=== PATIENT | female | born 1970 | race Caucasian/White ===

== ENCOUNTER 2018-03-24 15:44 | Inpatient (IN) | payer OTHER | END 2018-03-28 20:00 | LOC: WEST WING 03-25 00:58 → ER 15:44 | PROC: 0DJ08ZZ Inspection of Upper Intestinal Tract, Via Natural or Artificial Opening Endoscopic (ICD-10-PCS; principal; 2018-03-26 11:51) | PROC: 0DBP8ZX Excision of Rectum, Via Natural or Artificial Opening Endoscopic, Diagnostic (ICD-10-PCS; 2018-03-26 11:51) | DX: K29.51 Unspecified chronic gastritis with bleeding (principal); E44.0 Moderate protein-calorie malnutrition; G35 Multiple sclerosis; M41.9 Scoliosis, unspecified; F41.0 Panic disorder [episodic paroxysmal anxiety]; G89.4 Chronic pain syndrome; G56.01 Carpal tunnel syndrome, right upper limb; N80.9 Endometriosis, unspecified; F32.9 Major depressive disorder, single episode, unspecified ==

== ENCOUNTER 2022-07-26 16:07 | Inpatient (IN) | payer OTHER, MEDICAID ==
[~2022-07-26] VITALS: Ht 162.6 cm; Wt 100.7 kg
[~2022-07-26 16:07] MED LIST: AMAN100T PO; BACL10TA PO; BUPR150T18 PO; CLON1TAB PO; FENT25DI2 TD; FENT75DI2 TD; FER325T PO; GLAT1INJ SC; HYDR-531 PO; LIOT5TAB20 PO; NAPR-476 PO; OXYB15TA12 PO; PREG100C PO; TRAZ-227 PO
[2022-07-26] MEDS ORDERED: SODIUM CHLORIDE 0.9% 1,000 ML IV ONE (17:45)
[2022-07-26] MEDS ORDERED: HYDROmorphone HCL 2 MG/ML VL/or syr IM ONE (17:45)
[2022-07-26 18:38] LABS: Basophils # (auto) 0 10 ^3/uL (0-0.2); Basophils % (auto) 0.1 % (0.0-2.0); Eosinophils # (auto) 0.1 10 ^3/uL (0-0.8); Eosinophils % (auto) 0.9 % (0.0-7.0); Hematocrit 47.6 % (36.0-46.0); Mean Corpuscular Hemoglobin 26.9 pg (28.0-32.0); Neutrophils # (auto) 7.9 10 ^3/uL (1.6-8.6); White Blood Cell 10.1 10^3/uL (4.4-10.8)
[2022-07-26 18:40] LABS: Hemoglobin 15.6 g/dL (12.2-16.2); Lymphocytes # (auto) 1.6 10 ^3/uL (0.4-5.4); Lymphocytes % (auto) 15.8 % (10.0-50.0); Mean Corpuscular Hgb Conc. 32.8 g/dL (32.0-36.0); Monocytes # (auto) 0.5 10 ^3/uL (0-1.3); Monocytes % (auto) 5.3 % (0.0-12.0); Neutrophils % (auto) 77.9 % (37.0-80.0); Nucleated Red Blood Cells % 0.2 %; Red Blood Cells 5.81 10^6/uL (4.0-5.20)
[2022-07-26 19:20] LABS: Albumin 3.7 g/dL (3.4-5.0); Calcium 9.7 mg/dL (8.5-10.1); Potassium 3.7 mmol/L (3.5-5.1)
[2022-07-26 19:26] LABS: BUN/Creatinine Ratio 12.1 (10.0-20.0); Bilirubin, Total 0.5 mg/dL (0.2-1.0); Magnesium 2.1 mg/dL (1.6-2.6)
[2022-07-26] MEDS ORDERED: DexAMETHasone INJECTION 10 MG in D5W 5% 50 ML IV ONE (21:15)
[2022-07-26] MEDS ORDERED: ACETAMINOPHEN 325 MG TAB PO PRN (22:30)
[2022-07-26] MEDS ORDERED: DOCUSATE SOD 100 MG CAP PO PRN (22:30)
[2022-07-26] MEDS ORDERED: HYDROcodone-ACET 5/325MG TAB PO PRN (22:30)
[2022-07-26] MEDS ORDERED: NITROGLYCERIN 0.4 MG SL TAB SL PRN (22:30)
[2022-07-27] VITALS: BP 147/78
[2022-07-27 05:00] VITALS: BP 142/63
[2022-07-27] MEDS: SODIUM CHLOR 0.9% PF (SALINE LOCK) 10ML VIAL/SYR IV SCH ×3 (06:00→22:06)
[2022-07-27] MEDS: BACLOFEN 10 MG TAB PO SCH ×3 (06:35→22:06)
[2022-07-27 06:40] LABS: Potassium 3.7 mmol/L (3.5-5.1)
[2022-07-27 06:47] LABS: Basophils # (auto) 0 10 ^3/uL (0-0.2); Basophils % (auto) 0.1 % (0.0-2.0); Eosinophils # (auto) 0 10 ^3/uL (0-0.8); Hematocrit 46.2 % (36.0-46.0); Hemoglobin 15.3 g/dL (12.2-16.2); Lymphocytes # (auto) 1.5 10 ^3/uL (0.4-5.4); Lymphocytes % (auto) 14.4 % (10.0-50.0); Mean Corpuscular Hemoglobin 27.4 pg (28.0-32.0); Mean Corpuscular Hgb Conc. 33.2 g/dL (32.0-36.0); Mean Corpuscular Volume 82.7 fL (80.0-100.0); Monocytes # (auto) 0.1 10 ^3/uL (0-1.3); Monocytes % (auto) 0.8 % (0.0-12.0); Neutrophils # (auto) 8.8 10 ^3/uL (1.6-8.6); Neutrophils % (auto) 84.7 % (37.0-80.0); Nucleated Red Blood Cells % 0.1 %; Red Blood Cells 5.59 10^6/uL (4.0-5.20); Red Cell Distribution Width 15.5 % (11.8-14.3); White Blood Cell 10.4 10^3/uL (4.4-10.8)
[2022-07-27] MEDS ORDERED: ROPI1TAB4 PO (06:47)
[2022-07-27] MEDS ORDERED: DOCU-94 PO (06:47)
[2022-07-27 06:48] LABS: Albumin 3.6 g/dL (3.4-5.0); BUN/Creatinine Ratio 10.8 (10.0-20.0); Bilirubin, Total 0.7 mg/dL (0.2-1.0); Calcium 9.5 mg/dL (8.5-10.1); Total Protein 6.6 g/dL (6.4-8.2)
[2022-07-27 08:00] VITALS: BP 158/71
[2022-07-27] MEDS ORDERED: DexAMETHasone SOD PHOS 10MG/1ML VIAL INJ IV SCH (10:00)
[2022-07-27 12:30] VITALS: BP 142/85
[2022-07-27] MEDS: PRAMIPEXOLE DIHYDROCHLORIDE MO 0.25 MG TAB PO SCH ×2 (13:27→22:05)
[2022-07-27] MEDS: clonazePAM 0.5 MG TAB PO PRN (15:00)
[2022-07-27 16:30] VITALS: BP 147/79
[2022-07-27 22:00] VITALS: BP 170/63
[2022-07-27] MEDS: hydrALAZINE HCL 20 MG/ML VL IV PRN (22:13)
[2022-07-27] MEDS ORDERED: LORazepam 2MG/ML-1ML VIAL IV PRN (23:30)
[2022-07-28] MEDS: hydrALAZINE HCL 20 MG/ML VL IV PRN ×3 (04:47→23:39)
[2022-07-28] MEDS: SODIUM CHLOR 0.9% PF (SALINE LOCK) 10ML VIAL/SYR IV SCH ×3 (04:47→22:00)
[2022-07-28 05:00] VITALS: BP 174/94
[2022-07-28] MEDS: BACLOFEN 10 MG TAB PO SCH ×3 (06:00→22:00)
[2022-07-28 09:00] VITALS: BP 184/76
[2022-07-28] MEDS: FAMOTIDINE 20 MG TAB PO SCH ×2 (10:00→22:32)
[2022-07-28] MEDS: CHOLECALCIFEROL (VITD3) 2,000 UNIT CAP/TAB PO SCH (10:00)
[2022-07-28] MEDS: methylPREDNISolone SOD SUCC 1,000 MG in SODIUM CHL 0.9% 250 ML IV SCH (10:52)
[2022-07-28] MEDS: HYDROcodone-ACET 10/325MG TAB PO PRN ×2 (11:09→11:58)
[2022-07-28] MEDS: ONDANSETRON HCL 4 MG/2 ML VIAL IV PRN ×3 (11:10→23:39)
[2022-07-28] MEDS ORDERED: GADOTERATE MEG 10 MMOL/20ml INJ (0.5MMOL/ml) IV ONE (11:58)
[2022-07-28 13:00] VITALS: BP 144/96
[2022-07-28] MEDS: MORPHINE SULFATE INJ 2 MG/ml SYRG IV PRN (13:40)
[2022-07-28 17:00] VITALS: BP 164/77
[2022-07-28] MEDS: clonazePAM 0.5 MG TAB PO PRN (17:01)
[2022-07-28 22:00] VITALS: BP 164/66
[2022-07-28] MEDS ORDERED: PRAMIPEXOLE DIHYDROCHLORIDE MO 0.25 MG TAB ONE (22:22)
[2022-07-28] MEDS: PRAMIPEXOLE DIHYDROCHLORIDE MO 0.25 MG TAB PO SCH (22:32)
[2022-07-29] MEDS: MORPHINE SULFATE INJ 2 MG/ml SYRG IV PRN ×3 (00:12→19:44)
[2022-07-29] MEDS: OXYCODONE W/ ACETAMINOPHEN 5/325MG TABLET PO PRN ×2 (03:41→14:48)
[2022-07-29] MEDS: BACLOFEN 10 MG TAB PO SCH ×3 (05:08→19:19)
[2022-07-29] MEDS: SODIUM CHLOR 0.9% PF (SALINE LOCK) 10ML VIAL/SYR IV SCH ×3 (06:14→21:29)
[2022-07-29] MEDS: FAMOTIDINE 20 MG TAB PO SCH (10:00)
[2022-07-29] MEDS: CHOLECALCIFEROL (VITD3) 2,000 UNIT CAP/TAB PO SCH (10:00)
[2022-07-29] MEDS: methylPREDNISolone SOD SUCC 1,000 MG in SODIUM CHL 0.9% 250 ML IV SCH (13:00)
[2022-07-29] MEDS: hydrALAZINE HCL 20 MG/ML VL IV PRN (13:01)
[2022-07-29] MEDS: PANTOPRAZOLE 40 MG/10 ML VIAL INJ IV SCH (18:52)
[2022-07-29] MEDS: ONDANSETRON HCL 4 MG/2 ML VIAL IV PRN (19:44)
[2022-07-29] MEDS: clonazePAM 0.5 MG TAB PO PRN (21:28)
[2022-07-30] MEDS: BACLOFEN 10 MG TAB PO SCH ×2 (02:09→13:34)
[2022-07-30] MEDS: OXYCODONE W/ ACETAMINOPHEN 5/325MG TABLET PO PRN ×3 (02:13→18:33)
[2022-07-30] MEDS: SODIUM CHLOR 0.9% PF (SALINE LOCK) 10ML VIAL/SYR IV SCH ×2 (05:50→11:19)
[2022-07-30 06:13] VITALS: BP 169/88
[2022-07-30] MEDS: clonazePAM 0.5 MG TAB PO PRN (06:39)
[2022-07-30] MEDS: hydrALAZINE HCL 20 MG/ML VL IV PRN (06:40)
[2022-07-30] MEDS: PANTOPRAZOLE 40 MG/10 ML VIAL INJ IV SCH (08:53)
[2022-07-30] MEDS: MORPHINE SULFATE INJ 2 MG/ml SYRG IV PRN ×2 (08:53→15:55)
[2022-07-30] MEDS: methylPREDNISolone SOD SUCC 1,000 MG in SODIUM CHL 0.9% 250 ML IV SCH (08:54)
[2022-07-30 09:00] VITALS: BP 137/62
[2022-07-30] MEDS: CHOLECALCIFEROL (VITD3) 2,000 UNIT CAP/TAB PO SCH (11:16)
[2022-07-30] MEDS ORDERED: ALBUTEROL SULF 2.5 MG/0.5ML(0.5%) NEB SOLN NEB ONE ×2 (11:45→12:30)
[2022-07-30] MEDS ORDERED: ALBUTEROL SULF 2.5 MG/0.5ML(0.5%) NEB SOLN ONE (12:28)
[2022-07-30 13:00] VITALS: BP 154/89
[2022-07-30] MEDS ORDERED: METH4PAK PO (16:57)
[2022-07-30 17:00] VITALS: BP 150/69
[2022-07-30 19:02] VITALS: BP 169/88
== END 2022-07-30 19:49 | disposition home health service (06) | DRG 59 ==
LOC: EDBD 16:07 → ER 16:07 → OVERFLOW 22:31 → CENTRAL 23:44
PROVIDERS: ADMIT Nurse Practitioner Family; ATTEND Internal Medicine
DX: G35 Multiple sclerosis (principal); R47.01 Aphasia; I10 Essential (primary) hypertension; E66.01 Morbid (severe) obesity due to excess calories; R56.9 Unspecified convulsions; F17.200 Nicotine dependence, unspecified, uncomplicated; G89.4 Chronic pain syndrome; F41.0 Panic disorder [episodic paroxysmal anxiety]; M41.9 Scoliosis, unspecified; W18.39XA Other fall on same level, initial encounter; Y93.89 Activity, other specified; Z88.0 Allergy status to penicillin; Z68.38 Body mass index [BMI] 38.0-38.9, adult; Z80.8 Family history of malignant neoplasm of other organs or systems; Z82.0 Family history of epilepsy and other diseases of the nervous system; Z82.5 Family history of asthma and other chronic lower respiratory diseases; Z83.3 Family history of diabetes mellitus; Y99.8 Other external cause status; Y92.098 Other place in other non-institutional residence as the place of occurrence of the external cause
CPT/HCPCS: 36415; 70450; 70553; 71250; 72125; 73090; 73562; 74176; 80053; 82962; 83605; 83735; 83880; 84484; 85025; 96361; 96365; 96372; 97116; 97163; 97530; C9113; G0378; J1100; J2405; J7060

== ENCOUNTER 2023-04-21 10:54 | Emergency (ER) | payer OTHER, MEDICAID ==
[~2023-04-21] VITALS: Ht 157.5 cm; Wt 113.0 kg
[~2023-04-21 10:54] MED LIST changes: -AMAN100T PO; -BACL10TA PO; -BUPR150T18 PO; +DOCU-94 PO; -FENT25DI2 TD; -FENT75DI2 TD; -FER325T PO; -GLAT1INJ SC; -LIOT5TAB20 PO; +METH4PAK PO; -NAPR-476 PO; -OXYB15TA12 PO; +ROPI1TAB4 PO
[2023-04-21] MEDS: SODIUM CHLORIDE 0.9% 1,000 ML IVB ONE (11:33)
[2023-04-21] MEDS: NITROGLYCERIN 0.4 MG SL TAB SL ONE (11:33)
[2023-04-21] MEDS: ASPirin 81 mg TAB PO ONE (11:33)
[2023-04-21] MEDS: PROCHLORPERAZINE EDISYLATE 5 MG/ML 2ML VIAL IV ONE ×2 (11:33→21:38)
[2023-04-21 11:46] VITALS: PULSE 75; RESP 15; O2SAT 95
[2023-04-21 11:57] LABS: Basophils # (auto) 0.1 10 ^3/uL (0-0.2); Basophils % (auto) 0.5 % (0.0-2.0); Eosinophils # (auto) 0.1 10 ^3/uL (0-0.8); Eosinophils % (auto) 1.2 % (0.0-7.0); Hemoglobin 16.3 g/dL (12.2-16.2); Lymphocytes # (auto) 2.2 10 ^3/uL (0.4-5.4); Lymphocytes % (auto) 18.8 % (10.0-50.0); Mean Corpuscular Hemoglobin 27.3 pg (28.0-32.0); Mean Corpuscular Hgb Conc. 32.5 g/dL (32.0-36.0); Mean Corpuscular Volume 83.9 fL (80.0-100.0); Monocytes % (auto) 8.3 % (0.0-12.0); Neutrophils # (auto) 8.2 10 ^3/uL (1.6-8.6); Neutrophils % (auto) 71.2 % (37.0-80.0); Red Blood Cells 5.96 10^6/uL (4.0-5.20); Red Cell Distribution Width 16.3 % (11.8-14.3); White Blood Cell 11.6 10^3/uL (4.4-10.8)
[2023-04-21 12:05] LABS: Partial Thromboplastin Time 26.8 SEC (24.5-34.5); Prothrombin Time 10.5 sec (9.3-11.8)
[2023-04-21 12:08] LABS: Alanine Aminotransferase 18 U/L (7-40); Albumin 4.5 g/dL (3.2-4.8); Alkaline Phosphatase 79 U/L (46-116); Anion Gap 8 (5-15); Aspartate Aminotransferase 14 U/L (13-40); BUN/Creatinine Ratio 12.2 (10.0-20.0); Blood Urea Nitrogen 11 mg/dL (9-23); Calcium 10.5 mg/dL (8.7-10.4); Carbon Dioxide 25 mmol/L (20-30); Chloride 107 mmol/L (98-107); Glucose 85 mg/dL (74-106); Lipase 23 U/L (12-53); Magnesium 1.9 mg/dL (1.6-2.6); Potassium 3.8 mmol/L (3.5-5.1); Sodium 140 mmol/L (136-145)
[2023-04-21 12:09] LABS: Bilirubin, Total 0.9 mg/dL (0.2-1.0); Total Protein 6.7 g/dL (5.7-8.2)
[2023-04-21 12:49] LABS: Urine Bacteria NONE SEEN /hpf (None Seen); Urine Blood Negative /uL (Negative); Urine Clarity Clear (Clear); Urine Color Yellow (Yellow); Urine Protein, UAD TRACE (Negative); Urine Specific Gravity 1.023 (1.001-1.035); Urine Urobilinogen Normal (Negative); Urine WBC 2 /hpf (0 - 5); Urine pH 8.5 (5.0-8.0)
[2023-04-21] MEDS: PANTOPRAZOLE 40 MG/10 ML VIAL INJ IV ONE (17:39)
[2023-04-21] MEDS: IOHEXOL 350 MG/ML 100ML IJ ONE ×2 (20:08→22:22)
[2023-04-21] MEDS: ACETAMINOPHEN 325 MG TAB PO ONE (21:38)
[2023-04-21 22:46] VITALS: BP 155/99; PULSE 88; RESP 16; TEMP 99.7; O2SAT 94
== END 2023-04-22 00:29 | disposition left against medical advice (07) ==
LOC: EDBD 10:54 → ER 10:54
DX: G35 Multiple sclerosis (principal); I27.20 Pulmonary hypertension, unspecified; J47.1 Bronchiectasis with (acute) exacerbation; Z79.899 Other long term (current) drug therapy
CPT/HCPCS: 36415; 71045; 71250; 80053; 81001; 83690; 83735; 83880; 84484; 85025; 85610; 85730; 93005; 96361; 96374; 96375; 96376; 99285; C9113; J0780; J7030; Q9967